=== PATIENT | female | born 1950 | race Caucasian/White ===

== ENCOUNTER 2017-01-13 17:00 | Emergency (ER) | payer MEDICARE, OTHER ==
--- NOTE | ~2017-01-13 | CR281 ---
[facility]. [facility] A Service of [facility] & [facility] RADIOLOGY TEXT RESULTS PATIENT: HALI MORRIS LOCATION: SED : 48 UNIT #: [id number] AGE: [address]: Rosario Larkin APRN SEX: F ORDER DR: [id number] [address] [address] [id number] E MR#: [id number] Acc #: [id number] NAME: HALI MORRIS : 1950 SEX: F STUDY DATE/TIME: 01/13/2017 18:29 UNIT: SED ROOM: STUDY DESCRIPTION: CR Wrist Min 3 View Lt Attending Physician: Rosario Larkin A.P.R.N. Ordering Physician: Rosario Sparks A.P.R.N. Primary Care Physician: No Primary Care Physician MEDICAL IMAGING REPORT This report is preliminary unless electronic signature is present. EXAM Left wrist 3 views HISTORY Wrist pain after fall yesterday. FINDINGS 3 views left wrist demonstrate a transverse nondisplaced fracture through the distal radial metaphysis with fracture extension to the distal radioulnar joint. No fracture impaction or angulation. On one-view, there is also a linear lucency extending through the radial margin of the scaphoid at the junction of the middle and distal thirds, raising concern of a nondisplaced scaphoid fracture. This is not confirmed on the additional views. There is soft tissue swelling about the wrist. No joint space narrowing or dislocation. Incidental 5 mm cyst in the triquetrum. Dictated by... Antonio Flor M.D. THIS IS AN ELECTRONICALLY VERIFIED REPORT Antonio Flor M.D. at 01/14/2017 10:55 PM BALBIR/shamar TD: 01/14/2017 00:04 JOB #: [id number] MEDICAL IMAGING REPORT Page 1 of 1
--- NOTE | ~2017-01-13 | CR141 ---
[facility]. [facility] A Service of [facility] RADIOLOGY TEXT RESULTS PATIENT: HALI MORRIS LOCATION: SED : 48 UNIT #: [id number] AGE: [address]: Rosario Larkin APRN SEX: F ORDER DR: [id number] [address] [address] [id number] E MR#: [id number] Acc #: [id number] NAME: HALI MORRIS : 1950 SEX: F STUDY DATE/TIME: 01/13/2017 18:25 UNIT: SED ROOM: STUDY DESCRIPTION: CR Hand Min 3 Views Lt Attending Physician: Rosario Larkin A.P.R.N. Ordering Physician: Rosario Sparks A.P.R.N. Primary Care Physician: Primary Care Physician No MEDICAL IMAGING REPORT This report is preliminary unless electronic signature is present. EXAM Left hand 3 views, 01/13/2017 HISTORY Fell yesterday. Pain. FINDINGS 3 views of the left hand demonstrate a nondisplaced transverse fracture through the distal radial metaphysis extending to the distal radioulnar joint. Soft tissue swelling about the distal forearm and wrist. Bone alignment to the hand is normal. No additional fracture is identified. Dictated by... Antonio Flor M.D. THIS IS AN ELECTRONICALLY VERIFIED REPORT Antonio Flor M.D. at 01/14/2017 10:55 PM DFHeather/luna TD: 01/13/2017 23:58 JOB #: [id number] MEDICAL IMAGING REPORT Page 1 of 1
[~2017-01-13 17:00] MED LIST: AMARYL1 MG; ASPIRIN81 M2
== END 2017-01-13 20:06 | disposition home or self-care (01) ==
LOC: SED 17:00
DX: S52.592A Other fractures of lower end of left radius, initial encounter for closed fracture (principal); E11.9 Type 2 diabetes mellitus without complications; F17.210 Nicotine dependence, cigarettes, uncomplicated; W18.39XA Other fall on same level, initial encounter; Y92.009 Unspecified place in unspecified non-institutional (private) residence as the place of occurrence of the external cause
CPT/HCPCS: 29125; 73110; 73130; 99283